=== PATIENT | female | born 1950 | race Caucasian/White ===

== ENCOUNTER 2020-05-22 06:41 | Observation (INO) ==
--- NOTE | 2020-05-15 09:03 | Anesthesiology Consultation ---
Date of Service May 15, 2020 Assessment & Plan (1) Encounter for pre-operative examination: Chart Review Chart Review: Acceptable Risk for Surgery (pending preop Covid testing results ) and Patient NOT seen in Pre Admission Testing Per nursing assessment 05/01/2020, patient denies any recent travel. No known Covid infection in the past 90 days. No known Covid positive contacts or Covid related symptoms. Patient following up with surgeon regarding preop Covid testing = will await results. PCP clearance 01/23/2020 =" I do not see any contraindication for right knee replacement providing preop studies are normal." (Repeat preop labs and previous EKG and CXR showed no acute issues) HypertensionBP controlled. Hypothyroidismcontinue Synthroid. Hypercholesterolemialipids are controlled. History Surgery Operation Date: 05/22/20 14:50 Proposed Procedures p Right Total Knee Arthroplasty - Joshua Mijares DO Height/Weight Height: 5 ft 5 in Weight: 80.739 kg Allergies Allergy/AdvReac Type Severity Reaction Status Date / Time No Known Allergies Allergy Verified 05/01/20 14:58 Medications Home Medications Medication Instructions Recorded Confirmed Last Taken acetaminophen [Tylenol Arthritis] 1,300 mg PO Q12H PRN 12/27/19 05/01/20 Unknown calcium carbonate [Calcium 600] 1,200 mg PO QAM 12/27/19 05/01/20 Unknown cholecalciferol (vitamin D3) 125 mcg PO 3XWK 12/27/19 05/01/20 Unknown [Vitamin D3] levothyroxine [Euthyrox] 100 mcg PO QAM 12/27/19 05/01/20 Unknown lisinopril-hydrochlorothiazide 1 tab PO QAM 12/27/19 05/01/20 Unknown lovastatin 40 mg PO QAM 12/27/19 05/01/20 Unknown Past Medical History Medical History Hyperlipidemia Hypertension Hypothyroidism Osteoarthritis Past Family History Family History Grandmother Family history of diabetes mellitus Past Surgical History Surgical History History of appendectomy History of bilateral tubal ligation History of colonoscopy History of hysterectomy OVARIES REMAIN Nausea and vomiting after administration of anesthetic agent Social History Smoking Status: Never smoker Do You Dip or Chew Tobacco: No Hx Alcohol Use: No Hx Substance Use: No substance use type: does not use Testing Laboratory Results 05/11/20= WBC: 7.5 H/H: 13.4/40.0 PLATELETS: 251 SODIUM: 140 POTASSIUM: 3.8 CHLORIDE: 106 CO2: 29 BUN: 14 CREATININE: 0.8 GLUCOSE: 142 HGB A1C: 5.2 PT: 10.3 PTT: 22 INR: 1.03 UA: Trace blood, 1015 RBC, 25 epithelial cell, few mucus URINE CULTURE: 20,000 mixed bacteria lisa Electrocardiogram Date: 01/10/20 Findings: + NSR @ (87bpm) Normal EKG. Chest X-Ray Date: 01/10/20 Findings: + NAD and + cardiomegaly (mild)
--- NOTE | 2020-05-19 09:20 | History & Physical Report ---
Date of Service May 22, 2020 Assessment & Plan (1) Degenerative joint disease of knee, right: I have indicated the patient for right total knee replacement. The risks, benefits and complications of surgery were explained to the patient which include but not limited to infection, acute blood loss, DVT/PE, injury to nerves, vessels, bone, soft tissue, arthrofibrosis, chronic pain, failure of the prosthesis, knee dislocation, leg length discrepancy, need for additional surgery, cardiac and pulmonary events and . The patient wished to proceed with surgery and informed consent was obtained at this time. We will plan for 81mg ASA BID post-operatively for DVT prophylaxis. Upon discharge the patient will be discharged home with home health services. Appropriate clearances by PCP were obtained. History of Present Illness Chief Complaint: Right knee pain/DJD Primary Care Provider: Hector Hamlin MD The patient is a 70 year old female who presents with complaints of severe right knee pain and DJD. The patient has failed outpatient conservative treatments to this point which included NSAIDs, IA corticosteroid and GUILLERMO injections, home exercise/walking program. The patient's pain and limited function have progressed to the point where they severely hinder their activities of daily living and they no longer tolerate exercise programs. They are requesting to proceed with total knee replacement surgery. Allergies Allergy/AdvReac Type Severity Reaction Status Date / Time No Known Allergies Allergy Verified 05/01/20 14:58 Home Medications Medication Instructions Recorded Confirmed Type acetaminophen [Tylenol Arthritis] 1,300 mg PO Q12H PRN 12/27/19 05/01/20 History calcium carbonate [Calcium 600] 1,200 mg PO QAM 12/27/19 05/01/20 History cholecalciferol (vitamin D3) 125 mcg PO 3XWK 12/27/19 05/01/20 History [Vitamin D3] levothyroxine [Euthyrox] 100 mcg PO QAM 12/27/19 05/01/20 History lisinopril-hydrochlorothiazide 1 tab PO QAM 12/27/19 05/01/20 History lovastatin 40 mg PO QAM 12/27/19 05/01/20 History Past Med/Surg History Medical History Hyperlipidemia Hypertension Hypothyroidism Osteoarthritis Surgical History History of appendectomy History of bilateral tubal ligation History of colonoscopy History of hysterectomy OVARIES REMAIN Nausea and vomiting after administration of anesthetic agent Family History Grandmother Family history of diabetes mellitus Social History Smoking Status: Never smoker Second Hand Exposure: No; Do You Dip or Chew Tobacco: No; Hx Alcohol Use: No Hx Substance Use: No Preferred Language: Palauan Communication Ability: Effective Dance Hall Hostess Required: No Beliefs That Will Affect Care: None Current Living Situation: Spouse Other Information That Helps Us Care for You: No Feels Safe at Home: Yes Assistive Devices: Denture - Upper and Glasses Assistive Devices Comment: PARTIAL ON BOTTOM Review of Systems Review of Systems: All systems reviewed & are unremarkable except as noted in HPI & below Constitutional: as per Subjective / HPI Physical Exam Physical Exam: RLE NVSI +EHL/FHL/TA/GS SILT grossly, +2 DP pulse, compartments soft NT, limited painful ROM, 5-115 degrees flexion, +crepitus. Constitutional: WD/WN, vitals as above Eyes: PERRL, conjunctivae normal, anicteric sclerae ENMT: external ear and nose normal, oropharynx normal Neck: trachea midline, no thyromegaly Respiratory: normal respiratory effort, lungs clear to auscultation Cardiovascular: RRR, no murmur, no edema Gastrointestinal (Abdomen): normal bowel sounds, soft, nontender, no hepatosplenomegaly Musculoskeletal: no cyanosis or clubbing, extremities motor strength 5/5 Skin: no rashes, warm and dry Neurologic: patellar DTR's 2+ bilat, sensation intact Psychiatric: A+Ox3, euthymic affect Lymphatic: no cervical or axillary lymphadenopathy Results & Data Results & Data ([facility]) Diagnostic Findings Multiple views of the knee demonstrates severe tricompartmental DJD with complete loss of the medial joint space. +osteophytes, +sclerosis, +subchondral cysts. Pre Admission Testing Addendum Laboratory Results Blood Type A Positive 05/17/20 08:30 Antibody Screen NEGATIVE 05/17/20 08:30
[~2020-05-22 06:41] MED LIST: ACETAMINOPHEN 500 MG TAB PO SCH; BUPIVACAINE 0.25% 30 ML VIAL ONE; BUPIVACAINE 0.5 % 5 MG/1 ML PF 10ML VIAL ONE; CeleBREX 200 MG CAP PO SCH; FAMOTIDINE 20 MG TAB PO SCH; GABAPENTIN 300 MG CAP PO SCH; LR 500ML BOLUS, THEN 15ML/HR IV SCH; METOCLOPRAMIDE HCL 10 MG TABLET PO SCH; ROPIVACAINE 0.5% HCL/PF 150 MG, BUPIVACAINE 0.75% MPF 20 ML, EPINEPHrine 30MG/30ML (OR ... INFIL SCH; Scopolamine 1 MG TDSY TD SCH; TRANEXAMIC ACID 1,000 MG **IV Intra-op IV SCH; TRANEXAMIC ACID 1,000 MG **IV Pre-op IV SCH; ceFAZolin 2000MG 2,000 MG/15 ML SYR IV SCH; dexAMETHasone 4 MG TAB PO SCH
[2020-05-22] MEDS ORDERED: PROPOFOL IV EMULSION 10 MG/ML 20 ML VIAL IV ONE ×3 (06:53→11:08)
[2020-05-22] MEDS ORDERED: LIDOCAINE HCL 2% 2 ML VIAL/AMP(20MG/ML) INFIL ONE (06:53)
[2020-05-22] MEDS ORDERED: MIDAZOLAM HCL 1 MG/ML 2ML VIAL ONE (06:54)
[2020-05-22] MEDS ORDERED: BACITRACIN INJ 50,000 UNIT VIAL ONE (07:03)
[2020-05-22] MEDS ORDERED: ORTHO JOINT ANESTHETIC ONE (07:03)
--- NOTE | 2020-05-22 07:18 | History & Physical Bridge Note ---
Date of Service May 22, 2020 History & Physical Bridge Note I have examined the patient, reviewed the History & Physical and in the interval since the performance of the History & Physical I have noted the following changes of clinical significance: no changes noted
[2020-05-22] MEDS ORDERED: ONDANSETRON INJ 2 MG/ML 2 ML VIAL ONE (11:08)
--- NOTE | 2020-05-22 11:30 | Post Operative Brief Note ---
Immediate Post Op Note v1 Date of Surgery May 22, 2020 Pre & Post Diagnosis Operation Date: 05/22/20 08:50 Pre-Op Diagnosis: Unilateral Primary Osteoarthritis, Right Knee Post-Op Diagnosis: Unilateral Primary Osteoarthritis, Right Knee I identified the patient and participated in the time-out.: Yes Procedure Operation Date: 05/22/20 08:50 Actual Procedures p Right Total Knee Arthroplasty(Right) - Joshua Mijares DO Surgeon Joshua Mijares DO Bag End Sewer Drew Royal Estimated Blood Loss 65 Findings Consistent with Post-Op Diagnosis Fluids See anesthesia report Specimens Proximal tibia and distal femur bone fragments Anesthesia Type Spinal MAC Complications none Disposition Disposition: Recovery Room Overlapping Procedure I was present for: the critical portions of procedure. I was immediately available: during the entire case. Back up surgeon: was not required during procedure.
--- NOTE | 2020-05-22 11:32 | Operative Report ---
Post Operative Report Pre & Post Diagnosis Operation Date: 05/22/20 08:50 Pre-Op Diagnosis: Unilateral Primary Osteoarthritis, Right Knee Post-Op Diagnosis: Unilateral Primary Osteoarthritis, Right Knee I identified the patient and participated in the time-out.: Yes Procedure Operation Date: 05/22/20 08:50 Actual Procedures p Right Total Knee Arthroplasty(Right) - Joshua Mijares DO Surgeon Joshua Mijares DO Art Preparator Drew Royal Estimated Blood Loss 65 Findings Consistent with Post-Op Diagnosis Fluids See anesthesia report Specimens Proximal tibia and distal femur bone fragment Anesthesia Type Spinal MAC Complications none Disposition Disposition: Recovery Room Indications The patient is a 70-year-old female presents with long history of severe right knee tricompartmental DJD and failed outpatient conservative treatments including NSAIDs, bracing, injections and home walking/exercise program. The patient's symptoms have progressed to the point where it has been difficult to perform normal activities of daily living. I have indicated the patient for a right total knee arthroplasty, the risks and benefits and complications of the procedure include but are not limited to infection bleeding damage to bone, nerves, vessels, surrounding soft tissue, blood clots, loss of function, leg length discrepancy, dislocation, failure of the components, need for additional surgery and . The patient wished to proceed with surgery at this time and informed consent was obtained. Appropriate clearances were obtained. Description of Procedure COMPONENTS USED: Stuart persona knee system: Femur size 8 standard, Tibia size E, Tibial articulating surface 10 PS, Patella 29 mm Following induction of spinal anesthesia, a tourniquet was applied to the proximal aspect of the thigh and the patient's right leg was prepped and draped in the usual sterile manner. A timeout was performed, patient identified and site germain confirmed. Appropriate pre-operative IV antibiotics were given. The limb was exsanguinated with an Esmarch bandage and tourniquet was inflated to 300 mmHg. A longitudinal midline incision was made over the anterior knee. Subcutaneous tissue was sharply dissected down to fascia. Electrocautery was used for hemostasis. Next a parapatellar arthrotomy was performed. Patella was everted and the knee was flexed. A Henriquez retractor was used to expose the synovium above on the anterior aspect of the femur and removed down to bone. Next, the anterior fat pad was removed to aid in visualization. The medial face of the tibia was cleared of soft tissue first with a Bovie and a ramos elevator. This tissue was retracted posteriorly using a blunt Hohmann. Next, the extra-medullary tibial cutting guide was placed to the anterior aspect of the tibia. The tibia resection level was set taking 2mm from the defective tibial condyle. Resection depth was once again confirmed with doreen wing. The medial and lateral collateral ligament was protected with two Hohmann retractors. The tibia guide was removed and proximal tibial bone fragment removed utilizing straight osteotome, electrocautery and Vikki. Next, the distal femur intramedullary canal was accessed utilizing the step drill. The intramedullary distal femur cutting guide was placed into the canal and pinned into place. The distal femur was cut on the 5 degree setting. Next the cutting guide was removed and the femur was sized. Care was taken to ensure appropriate patient financial rep all rotation and 3 degree holes were drilled. A size 8 4-in-1 cutting block was placed on the distal end of the femur and secured into place with two short headed screws. Two bent Hohmann retractors were placed to protect the medial and lateral collateral ligaments. The oscillating saw was used to cut anterior, posterior, anterior chamfer and posterior chamfer. The four and one cutting block was removed and bone fragments excised. Laminar press technician was placed laterally and the ACL and PCL were removed followed by the medial meniscus and posterior medial osteophytes. Aquamantys was utilized for any posterior medial bleeders and Orthomix injected into the posterior medial capsule. A laminar press technician was then placed in the medial compartment and the lateral meniscus and posterior osteophytes were removed. Aquamantys was utilized for any posterior lateral bleeders and Orthomix injected into the posterior lateral capsule. Next, drop victor m and spacer block were placed with the leg in flexion and ex tension to assess alignment and flexion/extension gaps. Next, the proximal tibia was assessed and two bent Hohmans were placed medial and lateral to aid in visualization. The appropriate tibia size and rotation was selected and a size E tibial plate was pinned into place with appropriate rotation. Preparation of the tibia was completed utilizing the matching tibial drill and broach. I then turned my attention back to the distal femur in a trial femoral component was impacted into place. Appropriate femoral width was assessed and selected. Next the femur PS box cut guide was placed and cut made with the reciprocal saw and the PS box provisional placed. A trial size 10 PS tibia articular tray was placed and varus-valgus balance assessed in 0 degrees of extension and 30, 60 and 90 degrees of flexion. A final tibial articular surface size 10 PS was chosen. Assess was gained to the patella and caliper utilized to measure width. The patella reamer was utilized and remaining bone removed with oscillating saw. A size 29 mm patella button was selected and the patella pegs drilled. Trial patella button was placed and tracking was assessed. The knee was found to be well balanced, well aligned with excellent patella tracking. The trials were removed and final components were obtained and assembled. The knee was irrigated copiously with sterile saline solution mixed with bacitracin. Access to the proximal tibia was once again obtained utilizing to the Hohmans and the proximal tibia and distal femur were dried with lap sponges. The final components were cemented into place and all excess cement was removed. A trial tibial articular surface was placed while cemented hardened. Knee stability was once again assessed and the final component inserted. A Betadine soak was performed. After 3 minutes, the knee was once more irrigated with copious sterile saline solution with bacitracin. The knee was injected with the remaining Orthomix which includes a combination of Ropivicaine 0.5% 150mg, Bupivicaine 0.5%/Epinephrine 1:200,000 30ml, Toradol 30mg, Dexamethasone 4mg, Ketamine 10mg, Clonidine 100mcg and NSS 30ml solution. The capsulotomy was closed with #1 Vicryl followed by subcutaneous closure with 2-0 Vicryl suture and the skin was closed with leonard. A sterile dry dressing was applied which included red incisional VAC, web roll and Clayton wrap. Tourniquet was deflated at 72 minutes. The patient tolerated the procedure well and was taken to the PACU in stable condition. Due to the complex nature of the procedure, the entire surgery was performed with the operational assistance of Drew Royal PA-C. The chemistry research assistant, under direct supervision, was involved in the actual performance of all aspects of the surgical procedure including patient positioning, hemostasis, tissue retraction, instrument management and wound closure. I attest to the content of the Intraoperative Record and any orders documented therein. Any exceptions are noted below.
--- NOTE | 2020-05-22 12:14 | XRay Report ---
XR knee RT 1 or 2V routine HISTORY: 70 years-old Female SUTURE COUNT right knee total joint arthroplasty COMPARISON: None TECHNIQUE: AP view of the right knee FINDINGS: Right knee total joint arthroplasty with midline skin leonard. Expected postoperative soft tissue swe lling and deep tissue air. No unexpected opaque foreign body identified. No acute fracture or malalig nment. IMPRESSION: Single image radiograph demonstrates right knee total arthroplasty with expected postoper ative changes. ACT 112: Negative or not required by law. The above report was generated using voice recognition software. It may contain grammatical, syntax o r spelling errors. Electronically signed by: Brett Lopez M.D. 05/22/2020 12:13 PM
--- NOTE | 2020-05-22 12:44 | XRay Report ---
XR knee RT 1 or 2V routine CLINICAL HISTORY: Postoperative evaluation. COMPARISON: Intraoperative radiographs performed earlier today. FINDINGS: Alignment of the total right knee arthroplasty is anatomic. The hardware is intact. There is no periprosthetic fracture. No unexpected radiopaque foreign bodies are present. There are skin st aples. IMPRESSION: Expected findings following total right knee arthroplasty. ACT 112: Negative or not required by law. Electronically signed by: Danny Lora M.D. 05/22/2020 12:43 PM
[2020-05-22] MEDS ORDERED: bisacodyL 10 MG SUPP PR PRN (13:25)
[2020-05-22] MEDS ORDERED: oxyCODONE HCL IR 5 MG TAB (IMMEDIATE RELEASE) PO PRN (13:25)
[2020-05-22] MEDS ORDERED: NALOXONE HCL 0.4 MG/1 ML VIAL/CARP IV PRN (13:25)
[2020-05-22] MEDS ORDERED: HYDROmorphone INJ 0.5 MG/0.5 ML SYR IV PRN (13:25)
[2020-05-22] MEDS ORDERED: METOCLOPRAMIDE HCL INJ 5 MG/ML 2 ML VIAL IV PRN (13:25)
[2020-05-22] MEDS ORDERED: MAGNESIUM HYDROXIDE SUSP 30 ML UDC PO PRN (13:25)
[2020-05-22] MEDS ORDERED: ONDANSETRON INJ 2 MG/ML 2 ML VIAL IV PRN (13:25)
[2020-05-22] MEDS ORDERED: diphenhydrAMINE Capsule 25 MG CAP PO PRN (13:25)
[2020-05-22] MEDS: SODIUM CHLORIDE 0.9% 1000ML 1,000 ML IV SCH (13:36)
[2020-05-22] MEDS: Scopolamine CHECK PATCH PLACEMENT SCH (13:38)
[2020-05-22] MEDS: KETOROLAC TROMETHAMINE 15 MG/ML VIAL IV SCH ×2 (15:04→20:33)
[2020-05-22] MEDS: ACETAMINOPHEN 500 MG TAB PO SCH ×2 (15:04→22:20)
--- NOTE | 2020-05-22 17:33 | Anesthesiology Progress Note ---
Date of Service May 22, 2020 Anesthesia Post Procedure Vital Signs Vital Signs: Temp Pulse Pulse Resp BP Pulse Ox 05/22/20 15:17 36.8 C 61 16 137/77 98 05/22/20 15:01 36.7 C 83 14 133/58 L 98 05/22/20 14:15 36.9 C 68 16 149/80 H 99 05/22/20 14:00 36.6 C 63 14 135/75 98 05/22/20 13:26 36.3 C L 63 14 147/76 H 98 05/22/20 13:15 61 17 133/75 97 05/22/20 13:00 60 17 134/71 95 05/22/20 12:50 36.8 C 60 22 137/72 94 05/22/20 12:40 65 16 143/73 H 98 05/22/20 12:30 67 16 143/79 H 96 05/22/20 12:20 36.1 C L 64 22 146/76 H 98 05/22/20 07:36 36.8 C 84 18 177/85 H 98 Transfer of Care Handoff Completed per policy Notes Mental Status: alert / awake / arousable and participated in evaluation Patient Amnestic to Procedure: Yes Nausea / Vomiting: adequately controlled Pain: adequately controlled Airway Patency, RR, SpO2: stable & adequate BP & HR: stable & adequate Hydration State: stable & adequate Neuraxial Anesthesia: was administered and sensory block is resolving Anesthetic Complications: no major complications apparent and Pt Satisfied with anesthetic care
[2020-05-22] MEDS: ceFAZolin 2000MG 2,000 MG/15 ML SYR IV SCH (17:44)
--- NOTE | 2020-05-22 19:32 | Orthopedic Progress Note ---
Date of Service May 22, 2020 Assessment & Plan (1) Degenerative joint disease of knee, right: s/p right TKA -ancef -DVT ppx: SCDs, TEDs, 81mg ASA BID -WBAT RLE -PT/OT -PO XR demonstrates a well aligned well fixed prothesis without fracture/dislocation -am labs -DC planning Admission and Anticipated Discharge Date Admission Date: May 22, 2020 Subjective Post Operative Progress Note Patient seen sitting up in bed, comfortable, denies complaints, pain well controlled, no acute issues. Review of Systems 2 Review of Systems: All systems reviewed & are unremarkable except as noted in HPI & below Constitutional: as per Subjective / HPI Physical Exam Physical Exam: RLE NVSI +EHL/FHL/TA/GS SILT grossly, +2 DP pulse, compartments soft NT, dressing cdi. Constitutional: WD/WN, vitals as above Results & Data ([facility]) Vital Signs (Past 12 Hours) Vital Signs Temp Pulse Pulse Pulse Resp BP BP 05/22/20 18:55 36.8 C 66 16 136/78 05/22/20 15:17 36.8 C 61 16 137/77 05/22/20 15:01 36.7 C 83 14 133/58 L 05/22/20 14:15 36.9 C 68 16 149/80 H 05/22/20 14:00 36.6 C 63 14 135/75 05/22/20 13:26 36.3 C L 63 14 147/76 H 05/22/20 13:15 61 17 133/75 05/22/20 13:00 60 17 134/71 05/22/20 12:50 36.8 C 60 22 137/72 05/22/20 12:40 65 16 143/73 H 05/22/20 12:30 67 16 143/79 H 05/22/20 12:20 36.1 C L 64 22 146/76 H 05/22/20 07:36 36.8 C 84 18 177/85 H Pulse Ox 05/22/20 18:55 94 05/22/20 15:17 98 05/22/20 15:01 98 05/22/20 14:15 99 05/22/20 14:00 98 05/22/20 13:26 98 05/22/20 13:15 97 05/22/20 13:00 95 05/22/20 12:50 94 05/22/20 12:40 98 05/22/20 12:30 96 05/22/20 12:20 98 05/22/20 07:36 98
[2020-05-22] MEDS: DOCUSATE SODIUM 100 MG CAP PO SCH (20:35)
[2020-05-22] MEDS ORDERED: SENNA 8.6 MG TAB PO SCH (21:00)
[2020-05-23] MEDS: SODIUM CHLORIDE 0.9% 1000ML 1,000 ML IV SCH (00:24)
[2020-05-23] MEDS: Scopolamine CHECK PATCH PLACEMENT SCH ×2 (00:26→07:51)
[2020-05-23] MEDS: KETOROLAC TROMETHAMINE 15 MG/ML VIAL IV SCH ×4 (01:22→13:35)
[2020-05-23] MEDS: ceFAZolin 2000MG 2,000 MG/15 ML SYR IV SCH (01:24)
[2020-05-23] MEDS: ACETAMINOPHEN 500 MG TAB PO SCH ×2 (06:27→13:36)
[2020-05-23] MEDS ORDERED: LEVOTHYROXINE SODIUM 100 MCG TABLET PO SCH (06:30)
[2020-05-23 07:00] LABS: Hematocrit (blood only) 33.7 % (37-47); Mean Corpuscular Hemoglobin 28.9 pg (25-34); Mean Corpuscular Hgb Conc 32.6 g/dL (32-36); Mean Corpuscular Volume 88.5 fL (80-100); Mean Platelet Volume 9.7 fL (7.4-10.4); Platelet Count 234 K/uL (130-400); RDW Standard Deviation 42.3 fL (36.4-46.3); Red Blood Count 3.81 M/uL (4.2-5.4); White Blood Count 13.45 K/uL (4.8-10.8)
[2020-05-23 07:26] LABS: BUN Creatinine Ratio 18.7 (10-20); Calcium 8.1 mg/dl (8.5-10.1); Creatinine Clr Calc Pharmacy 59.4 ml/min; Est GFR (African American) 73.1; Est GFR (Non-African American) 63.1; Potassium 4.1 mmol/L (3.5-5.1)
[2020-05-23] MEDS: DOCUSATE SODIUM 100 MG CAP PO SCH (08:58)
[2020-05-23] MEDS ORDERED: ASPIRIN 81 MG ECTAB PO SCH (09:00)
[2020-05-23] MEDS ORDERED: LOVASTATIN 20 MG TAB PO SCH (09:00)
[2020-05-23] MEDS ORDERED: LISINOPRIL/HCTZ 10/12.5MG TAB PO SCH (09:00)
[2020-05-23] MEDS ORDERED: MULTIVITAMIN TAB PO SCH (09:00)
--- NOTE | 2020-05-23 10:07 | Orthopedic Progress Note ---
Date of Service May 23, 2020 Assessment & Plan (1) Degenerative joint disease of knee, right: s/p right TKA POD#1 -ancef -DVT ppx: SCDs, TEDs, 81mg ASA BID -WBAT RLE -PT/OT -PO XR demonstrates a well aligned well fixed prothesis without fracture/dislocation -am labs - as above, hgb 11.0 -DC planning - home with HH Admission and Anticipated Discharge Date Admission Date: May 22, 2020 Subjective Post Operative Progress Note Patient seen sitting up in bed, comfortable, denies complaints, pain well controlled, no acute issues. Review of Systems Review of Systems: All systems reviewed & are unremarkable except as noted in HPI & below Constitutional: as per Subjective / HPI Physical Exam Physical Exam: RLE NVSI +EHL/FHL/TA/GS SILT grossly, +2 DP pulse, compartments soft NT, dressing cdi. Constitutional: WD/WN, vitals as above Results & Data ([facility]) Vital Signs (Past 12 Hours) Vital Signs Temp Pulse Resp BP Pulse Ox 05/23/20 07:42 36.6 C 58 L 16 117/72 93 05/23/20 06:24 36.3 C L 56 L 17 116/67 93 05/23/20 04:40 37.0 C 64 16 143/82 H 93 05/22/20 23:04 37.0 C 57 L 16 122/68 93 Laboratory Results 05/23/20 05/23/20 Range/Units 06:43 06:43 WBC 13.45 H (4.8-10.8) K/uL RBC 3.81 L (4.2-5.4) M/uL Hgb 11.0 L (12.0-16.0) g/dL Hct 33.7 L (37-47) % MCV 88.5 (80-100) fL MCH 28.9 (25-34) pg MCHC 32.6 (32-36) g/dL RDW Std Deviation 42.3 (36.4-46.3) fL RDW Coeff of Lottie 13.0 (11.5-14.5) % Plt Count 234 (130-400) K/uL MPV 9.7 (7.4-10.4) fL Sodium 140 (136-145) mmol/L Potassium 4.1 (3.5-5.1) mmol/L Chloride 109 H (98-107) mmol/L Carbon Dioxide 28 (21-32) mmol/L Anion Gap 3.0 (3-11) BUN 17 (7-18) mg/dl Creatinine 0.92 (0.6-1.2) mg/dl Est Cr Clr Drug Dosing 59.4 ml/min Est GFR ( Amer) 73.1 Est GFR (Non-Af Amer) 63.1 BUN/Creatinine Ratio 18.7 (10-20) Glucose 109 H (70-99) mg/dl Calcium 8.1 L (8.5-10.1) mg/dl
--- NOTE | 2020-05-23 20:43 | Discharge Summary ---
Date of Service May 23, 2020 Admission HPI Per Admitting Provider The patient is a 70 year old female who presents with complaints of severe right knee pain and DJD. The patient has failed outpatient conservative treatments to this point which included NSAIDs, IA corticosteroid and GUILLERMO injections, home exercise/walking program. The patient's pain and limited function have progressed to the point where they severely hinder their activities of daily living and they no longer tolerate exercise programs. They are requesting to proceed with total knee replacement surgery. Principal Diagnosis Right total knee replacement Discharge Exam RLE NVSI +EHL/FHL/TA/GS SILT grossly, +2 DP pulse, compartments soft NT, dressing cdi. Constitutional WD/WN, vitals as above Discharge Data Allergies Allergy/AdvReac Type Severity Reaction Status Date / Time No Known Allergies Allergy Verified 05/22/20 07:52 Procedures Performed Operation Date: 05/22/20 08:50 Actual Procedures p Right Total Knee Arthroplasty(Right) - Joshua Mijares DO Ordered Studies 05/22/20 05:00 US - OR guided needle [facility] Hospital Course (1) Degenerative joint disease of knee, right: The patient is a 70 -year-old female who presents with long standing history of severe right knee DJD and failed outpatient conservative treatments. The patient's symptoms have progressed to the point where it has been difficult to perform even normal activities of daily living. I indicated the patient for a right total knee arthroplasty, the risks, benefits and complications of the procedure include but not limited to infection, bleeding, damage to bone, nerves, vessels, surrounding soft tissue, may develop blood clots, loss of function, leg length discrepancy, dislocation, failure of the components, loosening of the components, the need for additional surgery and . The patient wished to proceed with surgery at this time and informed consent was obtained. Hospital Course: On 05/22/20 the patient was taken to the operating room, adequate anesthesia admi nistered and underwent a right total knee arthroplasty. The patient tolerated the procedure well and was taken to the PACU in stable condition. Post- operatively the patient was started on a DVT ppx medication and given appropriate IV antibiotics. Consults were placed to physical therapy, occupational therapy and case management. On POD#1, the patient did well overnight and their pain was well controlled. Labs were drawn and the Hgb was 11.0. The patient progressed well with PT. Dressings were changed at this time and the incision was clean, dry and intact. The patients hospital stay was relatively uneventful and they were deemed stable by the orthopedic team and consultants to be discharged home with HH on 05/23/20. Discharge Instructions: Upon discharge the patient may weight bear as tolerates through their operative extremity. They were instructed to keep the incision clean and dry at all times. The patient may shower but should not submerge the incision, avoid bathing, pools and hot tubs. The patient was given a script for pain medication and should take as instructed. The patient was given a script for DVT ppx 81mg ASA BID and should take as directed. The patient was instructed to not drive or travel for long distances until cleared to do so. If the patient develops any symptoms of fevers, chills, nausea, vomiting, increased redness, swelling, pain or drainage from the surgical site, they should notify the office and/or proceed to the nearest emergency room. The patient should follow up in 10-14 days after surgery for their routine post-operative follow-up appointment and should call the office, to confirm the date and time. s/p right TKA POD#1 -ancef -DVT ppx: SCDs, TEDs, 81mg ASA BID -WBAT RLE -PT/OT -PO XR demonstrates a well aligned well fixed prothesis without fracture/dislocation -am labs - as above, hgb 11.0 -DC planning - home with Total Time Total Time Spent Total Time Spent (In Minutes): 30 Discharge Plan Discharge Items Patient Disposition: Home - Home Health Services Reason For Visit: Unilateral Primary Osteoarthritis, Right Knee Discharge Diagnosis: Right total knee replacement Condition on Discharge: Good Activity: Per Instructions section Lifting: Wait until after follow-up appointment Bathing: Keep incision dry Bathing Comment: No bathing, pools or hot tubs. Sexual Activity: Wait until after follow-up appointment Exercise/Sports: Wait until after follow-up appointment Driving/Machine Use: No driving. Weightbearing: Full weightbearing Non-emergency contact: Primary Care Provider and Surgeon Call non-emergency contact if: you have any medication questions, your symptoms worsen, your pain is not controlled, your pain is worsening, your pain is unu sual for you, your pain is concerning for you, you have a fever, your temperature is above 101, your wound has increased redness, your wound has increased drainage and your wound pain has increased Follow-up/Referrals: Hector Hamlin MD [Primary Care Provider] - Diet: Regular Addtl Attending Provider Instructions: ACTIVITY RECOMMENDATIONS: SELF CARE INSTRUCTIONS AFTER TOTAL KNEE REPLACEMENT A. You may need to continue a physical therapy program after discharge from the hospital. There are several options available to you. Your doctor will assist you in selecting the best one for you. 1. An out-patient facility 2 to 3 times a week for therapy or home therapy. 2. Continue working on all exercises taught to you in the hospital. Your goals should be to increase bending of your knee to 90 degrees and beyond and to fully straighten your knee. B. You may progress at your own pace from walking with a walker or crutches to a cane; then to no assistive devices. C. Make walking a part of your daily routine. Be up as much as comfortable with rest periods throughout the day. Rest with leg elevation is very important. Use the ice wrap frequently for the first 3-4 weeks. D. There are no restrictions on activities. 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 E. Wear the long elastic stockings (TINO hose) 20 hours a day for 2 weeks after surgery. They can be removed several times a day for laundering and for a bath. F. You may shower, no tub baths until cleared by your doctor. SPECIAL CARE INSTRUCTIONS: VERY IMPORTANT TO READ AND REVIEW A. There are a few signs you need to watch for after you are home. Call [facility] if you notice any of the followin. Increased severe knee pain. Some pain is expected especially when you exercise. 2. Increased swelling in your leg or knee; pain or swelling of the calf musc le in either lower leg. 3. Any fluid drainage from the incision. 4. Shortness of breath or chest pain. B. Please call [facility] at if you have any concerns or questions about your operation or recovery. The doctor or his nurse will return your call promptly. C. You must take antibiotics before dental work, bladder, bowel or other surgery. Your doctor will provide you with a permanent care to carry describing this precaution. IMPORTANT: * REMEMBER TO TAKE ASPIRIN, 81 MG, TWICE DAILY FOR 4 WEEKS UNLESS OTHERWISE DIRECTED. THIS IS YOUR BLOOD THINNER. * HIGH RISK PATIENTS MAY BE PRESCRIBED A STRONGER BLOOD THINNER. THIS WILL BE PROVIDED AT DISCHARGE. * CALL IF INCREASED PAIN, REDNESS, DRAINAGE OR FEVER GREATER THAT 101. * WEAR TINO HOSE 20 HOURS PER DAY FOR 2 WEEKS. *CARLO incisional vac is a special dressing covering your incision. This dressing provides a sterile dry environment while you are healing. The dressing is to be left in place for 7 days post-operatively. Your home nurse or surgeon will remove. If you develop any redness or blisters or have any questions notify your surgeon immediately. FOLLOW UP VISIT: If appointment is not already scheduled: Please call [facility] to make a follow-up appointment for 2 weeks after your surgery at . Pending Studies at Discharge: No Stand-Alone Forms: My [facility] [employer], Smoking Cessation Medications and DC Order Prescriptions: New acetaminophen 500 mg Tablet 1,000 mg PO Q8 PRN (Reason: fever or pain) Qty: 90 RF: 0 aspirin 81 mg Tablet,Delayed Release (Dr/Ec) 81 mg PO BID Qty: 56 RF: 0 celecoxib [Celebrex] 200 mg Capsule 200 mg PO BID PRN (Reason: pain/inflammation) Qty: 28 RF: 0 oxycodone 5 mg Tablet 5 mg PO Q6H MDD 4 PRN (Reason: pain) Qty: 30 RF: 0 sennosides [Senokot] 8.6 mg Tablet 17.2 mg PO HS PRN (Reason: constipation) Qty: 28 RF: 0 Continued lovastatin 40 mg Tablet 40 mg PO QAM RF: 0 levothyroxine [Euthyrox] 100 mcg Tablet 100 mcg PO QAM RF: 0 calcium carbonate [Calcium 600] 600 mg calcium (1,500 mg) Tablet 1,200 mg PO QAM RF: 0 lisinopril-hydrochlorothiazide 10-12.5 mg Tablet 1 tab PO QAM RF: 0 cholecalciferol (vitamin D3) [Vitamin D3] 125 mcg (5,000 unit) Tablet 125 mcg PO 3XWK RF: 0 Discontinued acetaminophen [Tylenol Arthritis] 650 mg Tablet Extended Release 1,300 mg PO Q12H PRN (Reason: Pain) RF: 0 Discharge Orders: Discharge Order (Routine); Ordered 05/23/20 Ordered By: Drew Royal Admission Data Admit Date/Time: 05/22/20 12:46 Attending Provider: Joshua Mijares Admit Provider: Joshua Mijares Primary Care Provider: Hector Hamlin Other Providers: [facility],Home Health Other Interventions: Discharge Summary Assessment (RN) Last Done: 05/23/20 13:17
[2020-05-24] MEDS ORDERED: CeleBREX 200 MG CAP PO SCH (09:00)
== END 2020-05-23 13:59 | disposition home health service (06) ==
LOC: 3W 06:41 → ASU 06:41